=== PATIENT | female | born 1955 | race Caucasian/White ===

== ENCOUNTER 2019-07-09 15:25 | Emergency (ER) | payer SELFPAY ==
[~2019-07-09] VITALS: Ht 167.6 cm; Wt 111.1 kg
[2019-07-09 15:29] VITALS: BP 125/80
[2019-07-09] MEDS ORDERED: NACL 0.9% 1,000 ML IV ONE (16:15)
[2019-07-09 16:54] LABS: BASOPHILS % (AUTO) 0.5 % (0.0-2.0); EOSINOPHILS # (AUTO) 0.3 K/uL (0-0.4); EOSINOPHILS % (AUTO) 5.1 % (0.0-4.0); HEMATOCRIT 42.6 % (36-48); HEMOGLOBIN 14.5 g/dL (12.0-16.0); LYMPHOCYTES # (AUTO) 2.1 K/uL (2.5-16.5); LYMPHOCYTES % (AUTO) 38.1 % (20.5-51.1); MEAN CORPUSCULAR HEMOGLOBIN 30 pg (27-31); MEAN CORPUSCULAR HGB CONC 34 g/dL (33-37); MEAN CORPUSCULAR VOLUME 87.8 fL (80-94); MONOCYTES # (AUTO) 0.4 K/uL (0.8-1.0); MONOCYTES % (AUTO) 7.8 % (1.7-9.3); NEUTROPHILS # (AUTO) 2.7 K/uL (1.8-7.7); NEUTROPHILS % (AUTO) 48.5 % (42.2-75.2); PLATELET COUNT (AUTO) 197 K/uL (140-450); RED BLOOD CELL COUNT(AUTO) 4.85 MIL/uL (4.20-5.40); RED CELL DISTRIBUTION WIDTH 13.8 % (11.6-13.7); WHITE BLOOD COUNT (AUTO) 5.6 K/uL (4.8-10.8)
--- NOTE | 2019-07-09 17:06 | NUR ---
PT BIB SELF WITH C/O BODY ACHES, LOWER BACK PAIN, AND NUMBNESS IN HANDS AND FEET X5 DAYS. PT REPORTS LOWER BACK PAIN THAT RADIATES TO ABD. -N/V, - FEVER, + DIARRHEA, + DYSURIA. PAIN 6/10 AT THIS TIME. STATES HAVING PAIN WHILE URINATING. NO MEDS TAKEN AT HOME. REPORTS OF GENERALISEDN WEAKNESS. PT AAOX4, RESPIRATION EVEN AND NON- LABORED. IVF NS INFUSING. WILL CONTINUE TO MONITOR PT. MEDHX:DM, HLD RX:METFORMIN, ATROVASTATIN
[2019-07-09 17:11] LABS: ANION GAP 14.1 (8-16); CARBON DIOXIDE 26.9 mmol/L (21-32); CREATININE 0.9 mg/dL (0.6-1.3)
[2019-07-09 17:18] LABS: ALBUMIN 3.9 g/dL (3.4-5.0); TOTAL BILIRUBIN 0.5 mg/dL (0.0-1.0)
--- NOTE | 2019-07-09 18:13 | NUR ---
IV removed, catheter intact and site benign. Applied folded 4x4 gauze and tape to stop bleeding.
[2019-07-09 18:14] VITALS: BP 137/94
--- NOTE | 2019-07-09 18:14 | NUR ---
Patient discharged with v/s stable. Written and verbal after care instructions given and explained. Patient alert, oriented and verbalized understanding of instructions. Ambulatory with steady gait. All questions addressed prior to discharge. ID band removed. Patient advised to follow up with PMD. Rx of Lactulose 10g/15ml and Mineral Oil given. Patient educated on indication of medication including possible reaction and side effects. Opportunity to ask questions provided and answered.
== END 2019-07-09 18:14 | disposition home or self-care (01) ==
LOC: MED 15:25
DX: K59.00 Constipation, unspecified (principal); E11.9 Type 2 diabetes mellitus without complications
CPT/HCPCS: 36415; 74022; 80053; 84484; 85025; 93005; 99284; J7030